=== PATIENT | male | born 1930 | race Caucasian/White ===

== ENCOUNTER 2018-03-12 07:15 | Inpatient (IN) ==
--- NOTE | 2018-03-12 08:27 | ED ---
HPI General Chief complaint: Back Pain/Injury Stated complaint: legs & back pain Time Seen by Provider: 03/12/18 07:35 Source: patient and family Mode of arrival: ambulatory Limitations: no limitations History of Present Illness HPI narrative: 87-year-old male with a 3-day history of back pain. Patient describes pain as a "muscle spasm", cramping and shooting from his left hip down to his toes. Currently rates the pain is 1 out of 10 however when he tries to move it increases to 10 out of 10 pain. Alleviating factors include sitting down and leaning forward. Aggravating factors include Valsalva, sitting straight up, standing up and walking. Denies icing the area. Reports taking a couple ibuprofen with no pain relief. Denies any falls or any new lifestyle or exercise regimen changes in the last couple of weeks. Reports being able to perform 15-minute walking exercises and stretches before this incident. Reports able to urinate and have a bowel movement. Denies headaches , dizziness, visual changes, shortness of breath, dyspnea, chest pain, abdominal pain, leg paralysis, numbness and tingling in the genital area. Onset (ago): day(s) (3) Location: lower extremity (left hip ) Radiation: extremity (left lower extremity ) Severity scale (1-10): 10 Quality: sharp Pain Consistency: intermittent Relieving factors: rest Exacerbating factors: movement Treatments prior to arrival: Reports NSAID Related Data Home Medications Medication Instructions Recorded Confirmed ascorbic acid (vitamin C) [Vitamin 500 mg PO BID 03/12/18 03/12/18 C] enalapril maleate 5 mg PO BID 03/12/18 03/12/18 fenofibrate 160 mg PO DAILY 03/12/18 03/12/18 furosemide 20 mg PO BID 03/12/18 03/12/18 insulin glargine [Lantus Solostar 18 unit SUBCUT DAILY 03/12/18 03/12/18 U-100 Insulin] lovastatin 20 mg PO BID 03/12/18 03/12/18 omeprazole 20 mg PO DAILY 03/12/18 03/12/18 tamsulosin 0.4 mg PO DAILY 03/12/18 03/12/18 Previous Rx's Medication Instructions Recorded hydrocodone-acetaminophen [Judsonia] 1 tab PO Q6H PRN #20 tab 03/12/18 Allergies Allergy/AdvReac Type Severity Reaction Status Date / Time hydrocodone Allergy Intermediate RASH Verified 03/12/18 07:49 quinine Allergy Intermediate RASH Verified 03/12/18 07:49 [facility] Social History Social History Substance History: No History of Abuse Second Hand Smoke Exposure: No Smoking Status: Never smoker How Often Do You Have a Drink Containing Alcohol: Never Recent Travel in [facility] within the Last 8 Weeks: No Recent Out of Country Travel within the Last 8 Weeks: No Immunization History Tetanus Immunization: Unsure Course Initial Documented Vital Signs Temperature 98.8 F 03/12/18 07:26 Pulse Rate 80 03/12/18 07:26 Respiratory Rate 18 03/12/18 07:26 Blood Pressure 148/72 H 03/12/18 07:26 Pulse Oximetry 97 03/12/18 07:26 Last Documented Vital Signs Temperature 97.8 F 03/13/18 10:45 Pulse Rate 73 03/13/18 10:45 Respiratory Rate 19 03/13/18 08:00 Blood Pressure 138/69 03/13/18 10:45 Pulse Oximetry 93 L 03/13/18 10:45 Medical Decision Making MDM Narrative Medical decision making narrative: Patient room in the emergency department, CAT scan does show an acute subacute fracture of L2 with compression and some retropulsion of elements, has chronic retropulsion of L5 which is somewhat worse. T12 has a old compression fracture as well. Patient neurologically intact, no indication for MRI at this time. He is feeling much better after Judsonia 5/325 x 2 pills in the ER, discussed pain management with him, after clearing E force the patient is low risk for Judsonia prescription, I written him 20 tablets in acute pain set exception is warranted given the patient's subacute fractures and the need for pain control at home to assist him with activities of daily living. Shortly after discussion for probable discharge patient's daughter arrived who is his primary caregiver and states that he has been totally dependent on her care recently. She is concerned about his ability to perform ADLs 2/2 pain. She asked that the patient could be placed into admission status for 3 days and then go to a rehabilitation stay do not think is an unreasonable request however at this time the patient meets observation status alone, I discussed the patient with case management, request consultation with Dr. Metz who the patient is known to. Medical Screen Exam Complete: Yes Emergency Medical Condition: Yes Lab Data Result diagrams: 10/22/18 04:34 03/13/18 04:34 Lab Results 03/12/18 03/12/18 03/12/18 Range/Units 13:00 19:28 19:28 WBC 8.9 (4.0-11.0) th/mm3 RBC 3.44 L (4.50-5.90) mil/mm3 Hgb 10.9 L (13.0-17.0) gm/dL Hct 31.4 L (39.0-51.0) % MCV 91.2 (80.0-100.0) fL MCH 31.8 (27.0-34.0) pg MCHC 34.8 (32.0-36.0) % RDW 13.1 (11.6-17.2) % Plt Count 234 (150-450) th/mm3 MPV 8.7 (7.0-11.0) fL Neut % (Auto) 73.2 H (16.0-70.0) % Lymph % (Auto) 13.5 (9.0-44.0) % Sutter % (Auto) 8.5 H (0.0-8.0) % Eos % (Auto) 3.8 (0.0-4.0) % Baso % (Auto) 1.0 (0.0-2.0) % Neut # (Auto) 6.5 (1.8-7.7) th/mm3 Lymph # (Auto) 1.2 (1.0-4.8) th/mm3 Sutter # (Auto) 0.8 (0.0-0.9) th/mm3 Eos # (Auto) 0.3 (0.0-0.4) th/mm3 Baso # (Auto) 0.1 (0.0-0.2) th/mm3 WBC Differential . Differential Comment Auto diff final PT 14.0 H (9.8-11.6) sec INR 1.4 Ratio APTT 25.2 (24.3-30.1) sec Sodium (136-145) meq/L Potassium (3.5-5.1) meq/L Chloride (98-107) meq/L Carbon Dioxide (21.0-32.0) meq/L Anion Gap (5-15) meq/L BUN (7-18) mg/dL Creatinine (0.60-1.30) mg/dL Estimated GFR (>89) mL/min POC Glucose 105 (68-110) mg/dl Random Glucose (74-106) mg/dL Calcium (8.5-10.1) mg/dL Prot Corrected Calcium (8.5-10.1) mg/dL Magnesium (1.5-2.5) mg/dL Total Creatine Kinase (39-308) U/L Total Protein (6.4-8.2) g/dL 03/12/18 03/12/18 03/13/18 Range/Units 19:28 21:14 04:34 WBC 6.5 (4.0-11.0) th/mm3 RBC 3.02 L (4.50-5.90) mil/mm3 Hgb 10.5 L (13.0-17.0) gm/dL Hct 30.0 L (39.0-51.0) % MCV 99.1 D (80.0-100.0) fL MCH 34.8 H (27.0-34.0) pg MCHC 35.1 (32.0-36.0) % RDW 13.4 (11.6-17.2) % Plt Count 218 (150-450) th/mm3 MPV 9.5 (7.0-11.0) fL Neut % (Auto) 70.9 H (16.0-70.0) % Lymph % (Auto) 13.0 (9.0-44.0) % Sutter % (Auto) 9.7 H (0.0-8.0) % Eos % (Auto) 5.4 H (0.0-4.0) % Baso % (Auto) 1.0 (0.0-2.0) % Neut # (Auto) 4.6 (1.8-7.7) th/mm3 Lymph # (Auto) 0.8 L (1.0-4.8) th/mm3 Sutter # (Auto) 0.6 (0.0-0.9) th/mm3 Eos # (Auto) 0.3 (0.0-0.4) th/mm3 Baso # (Auto) 0.1 (0.0-0.2) th/mm3 WBC Differential . Differential Comment Auto diff final PT (9.8-11.6) sec INR Ratio APTT (24.3-30.1) sec Sodium 141 (136-145) meq/L Potassium 2.9 L* (3.5-5.1) meq/L Chloride 104 (98-107) meq/L Carbon Dioxide 27.8 (21.0-32.0) meq/L Anion Gap 9 (5-15) meq/L BUN 28 H (7-18) mg/dL Creatinine 1.35 H (0.60-1.30) mg/dL Estimated GFR 50 L (>89) mL/min POC Glucose 125 H (68-110) mg/dl Random Glucose 101 (74-106) mg/dL Calcium 6.9 L* (8.5-10.1) mg/dL Prot Corrected Calcium 7.3 L* (8.5-10.1) mg/dL Magnesium 0.7 L (1.5-2.5) mg/dL Total Creatine Kinase (39-308) U/L Total Protein 6.4 (6.4-8.2) g/dL 03/13/18 03/13/18 03/13/18 Range/Units 04:34 07:29 10:47 WBC (4.0-11.0) th/mm3 RBC (4.50-5.90) mil/mm3 Hgb (13.0-17.0) gm/dL Hct (39.0-51.0) % MCV (80.0-100.0) fL MCH (27.0-34.0) pg MCHC (32.0-36.0) % RDW (11.6-17.2) % Plt Count (150-450) th/mm3 MPV (7.0-11.0) fL Neut % (Auto) (16.0-70.0) % Lymph % (Auto) (9.0-44.0) % Sutter % (Auto) (0.0-8.0) % Eos % (Auto) (0.0-4.0) % Baso % (Auto) (0.0-2.0) % Neut # (Auto) (1.8-7.7) th/mm3 Lymph # (Auto) (1.0-4.8) th/mm3 Sutter # (Auto) (0.0-0.9) th/mm3 Eos # (Auto) (0.0-0.4) th/mm3 Baso # (Auto) (0.0-0.2) th/mm3 WBC Differential Differential Comment PT (9.8-11.6) sec INR Ratio APTT (24.3-30.1) sec Sodium 142 (136-145) meq/L Potassium 4.3 D (3.5-5.1) meq/L Chloride 109 H (98-107) meq/L Carbon Dioxide 25.9 (21.0-32.0) meq/L Anion Gap 7 (5-15) meq/L BUN 27 H (7-18) mg/dL Creatinine 1.09 (0.60-1.30) mg/dL Estimated GFR 64 L (>89) mL/min POC Glucose 94 71 (68-110) mg/dl Random Glucose 86 (74-106) mg/dL Calcium 8.8 D (8.5-10.1) mg/dL Prot Corrected Calcium (8.5-10.1) mg/dL Magnesium 1.4 L D (1.5-2.5) mg/dL Total Creatine Kinase 227 (39-308) U/L Total Protein (6.4-8.2) g/dL Imaging Data Radiologist's impression: Lumbar Spine CT 03/12/18 08:14 CONCLUSION: 1. Moderate compression fracture deformity of the L2 vertebral body with invagination of the superior endplate. This appears acute to subacute with mild retropulsion of the posterior superior aspect measuring up to 3 mm with mass effect on the anterior thecal sac. 2. Chronic appearing compression fracture deformity of the L5 vertebral body with retropulsion which is new from the 2015 exam. 3. Stable compression fracture deformity of the T12 vertebral body. 4. Degenerative disc changes with annular disc bulges. There is mild to moderate central canal stenosis at L2-3. 5. Remote postsurgical changes status post left laminectomy at the L3-4 and L4- 5 levels. Pelvis X-Ray 03/12/18 08:14 CONCLUSION: No acute fracture or malalignment. Lumbar Spine MRI 03/13/18 00:00 CONCLUSION: 1. There is bone marrow edema consistent with an acute to subacute compression fracture injury involving L2 and L3. There is a moderate compression fracture of L2. There is a mild compression fracture injury along the superior endplate of L3. 2. Old wedge compression injuries at T12 and L5 without bone marrow edema. 3. Primary degenerative changes with disc degeneration and disc space narrowing at multiple levels. 4. 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 5. Disc bulging at multiple levels as described above. 6. Bilateral facet arthritis at multiple levels. Discharge Plan Discharge Disposition Patient Disposition: 30 Still Patient Discharge Condition Condition: Stable Discharge Details Diagnosis: Closed L2 vertebral fracture Physicians Team ED Provider: Santiago Kinsey Primary Care Provider: Ilda Delgado Attending Provider: Junior Kwon Other Providers: Omkar Washington Status ED Status: Left Department Discharge Information Discharge Date/Time: 03/12/18 15:55
--- NOTE | 2018-03-12 08:57 | XR ---
EXAM DATE: 03/12/2018 8:14 AM EDT AGE/SEX: 87 years / Male INDICATIONS: Left sided Pelvic pain CLINICAL DATA: This is the patient's initial encounter. Patient reports that signs and symptoms have been present for 1 day and indicates a pain score of 8/10. MEDICAL/SURGICAL HISTORY: . Hypertension. Diabetes . Cholecystectomy. TURP COMPARISON: [facility], XR PELVIS AP, 12/19/2014. . FINDINGS: A single AP view of the pelvis was obtained and again demonstrates diffuse osteopenia. There is no ac nidia fracture or malalignment. The hips are symmetric and intact with minimal degenerative change. The pubic rami and sacrum are unremarkable. Degenerative disc change and scoliosis are again noted in th e lower lumbar spine. There are vascular calcifications. CONCLUSION: No acute fracture or malalignment. Electronically signed by: Eduardo Duggan MD 03/12/2018 8:56 AM EDT
--- NOTE | 2018-03-12 10:24 | CT ---
EXAM DATE: 03/12/2018 8:36 AM EDT AGE/SEX: 87 years / Male INDICATIONS: Pain across low back per patient CLINICAL DATA: This is the patient's initial encounter. Patient reports that signs and symptoms have been present for 3 days and indicates a pain score of 10/10. MEDICAL/SURGICAL HISTORY: Diabetes. Hypertension. . TURP RADIATION DOSE: 35.86 CTDI (mGy) COMPARISON: [facility], XR SPINE LUMBAR (MIN 4 VIEWS), 12/19/2014. . TECHNIQUE: Contiguous axial images were acquired with a multirow detector CT scanner without contras t. Multiplanar reconstructions in the sagittal and coronal plane were also performed. Using automate d exposure control and adjustment of the mA and/or kV according to patient size, radiation dose was k ept as low as reasonably achievable to obtain optimal diagnostic quality images. DICOM format image data is available electronically for review and comparison. FINDINGS: Vertebrae: There is diffuse osteopenia. There is a stable mild compression fracture deformity T12 ve rtebral body again noted with anterior wedging. There is an interval moderate chronic appearing compr ession fracture deformity involving the L5 vertebral body with invagination of the superior endplate and mild retropulsion of the posterior superior aspect of the vertebral body. There is a moderate com pression fracture deformity of the L2 vertebral body with invagination of the superior endplate with patchy sclerosis. This appears acute. Discs: Degenerative disc changes are noted with mild disc space narrowing and hypertrophic changes. Alignment: Normal. No subluxation. T12-L1: There is a mild disc bulge with minimal flattening of the anterior thecal sac and no focal p rotrusion. There are mild degenerative change involving the facet joints. L1-L2: There is an annular disc bulge with mild flattening of the anterior thecal sac and no focal p rotrusion. There is mild narrowing of the neural foramina. The moderate compression fracture deformit y of the L2 vertebral body is again noted with fracture lines. There is mild retropulsion of the post erior superior aspect of the vertebral body measuring up to approximately 3 mm with mild mass effect on the anterior thecal sac. L2-L3: Mild annular disc bulge with flattening of the anterior thecal sac and narrowing of the neura l foramina. There are degenerative changes involving the facet joints with hypertrophy of ligamentum flavum and mild to moderate central canal stenosis. L3-L4: Mild annular disc bulge with flattening of the anterior thecal sac and narrowing of the neura l foramina. The patient is status post left laminectomy. The thecal sac is patent. L4-L5: Annular disc bulge with mild flattening of anterior thecal sac and no visualized protrusion. The compression fracture deformity of the L5 vertebral body is again noted with retropulsion of the p osterior superior aspect of the vertebral body and mass effect on the anterior thecal sac. There is l ateral recess stenosis. The patient is status post left laminectomy. L5-S1: Mild disc bulge with no mass effect on the thecal sac. There is mild narrowing of the neural foramina. There are degenerative changes involving the facet joints. CONCLUSION: 1. Moderate compression fracture deformity of the L2 vertebral body with invagination of the superio r endplate. This appears acute to subacute with mild retropulsion of the posterior superior aspect me asuring up to 3 mm with mass effect on the anterior thecal sac. 2. Chronic appearing compression fracture deformity of the L5 vertebral body with retropulsion which is new from the 2015 exam. 3. Stable compression fracture deformity of the T12 vertebral body. 4. Degenerative disc changes with annular disc bulges. There is mild to moderate central canal steno sis at L2-3. 5. Remote postsurgical changes status post left laminectomy at the L3-4 and L4-5 levels. Electronically signed by: Eduardo Duggan MD 03/12/2018 10:22 AM EDT
[2018-03-12] MEDS ORDERED: Dextrose 50% in Water 50 ML Vial IV.PUSH PRN (11:33)
[2018-03-12] MEDS ORDERED: Acetaminophen 325 MG Tablet PO PRN ×2 (11:34→12:39)
[2018-03-12] MEDS ORDERED: Bisacodyl 10 MG Supp RECTAL PRN (11:34)
[2018-03-12] MEDS ORDERED: Naloxone Inj 0.4 MG/ML Vial IV.PUSH PRN (12:39)
[2018-03-12] MEDS ORDERED: Morphine Inj 4 MG/ML Vial IV.PUSH PRN (12:39)
[2018-03-12] MEDS: Insulin NovoLOG Aspart Correctional Sugar Inj SQ SCH ×3 (12:46→21:15)
--- NOTE | 2018-03-12 12:48 | P.HP ---
History of Present Illness Primary Care Physician: Ilda Delgado MD Chief Complaint: Back pain History of Present Illness: This is a 87-year-old male with a history of hypertension, hyperlipidemia, diabetes mellitus, bilateral lower extremity edema and BPH. He presents to the emergency department complaining of back pain for the past 4-5 days. He describes a muscle spasm affecting his left lower back that shoots down to the left lateral thigh up to the knee. It is a mild constant pain scale of 1 out of 10 but when he tries to move increases to 10 out of 10. His activity has significantly been curtailed because of pain. He has not been ambulatory. At baseline, he regularly exercises with 15-minute walking but has not done it for the past several days. Denies incontinence, numbness and recent trauma. Lumbar CT shows moderate compression fracture deformity of the L2 vertebral body with invagination of the superior endplate. Patient lives with his daughter and son-in-law and has been totally dependent on his needs since he developed back pain. His family is concerned about his safety when he is alone. He is requesting to be evaluated by Dr. Metz who operated on his lumbar spine years ago. All other systems reviewed negative ITS Impressions Lumbar Spine CT 03/12/18 08:14 CONCLUSION: 1. Moderate compression fracture deformity of the L2 vertebral body with invagination of the superior endplate. This appears acute to subacute with mild retropulsion of the posterior superior aspect measuring up to 3 mm with mass effect on the anterior thecal sac. 2. Chronic appearing compression fracture deformity of the L5 vertebral body with retropulsion which is new from the 2015 exam. 3. Stable compression fracture deformity of the T12 vertebral body. 4. Degenerative disc changes with annular disc bulges. There is mild to moderate central canal stenosis at L2-3. 5. Remote postsurgical changes status post left laminectomy at the L3-4 and L4- 5 levels. Pelvis X-Ray 03/12/18 08:14 CONCLUSION: No acute fracture or malalignment. Review of Systems All other systems reviewed negative except as stated in HPI PMFSH - History History Provided By: Patient - Medical History Medical History: Medical History (Last Reviewed 03/12/18 @ 12:49 by Junior Kwon MD) Diabetes HTN (hypertension) High cholesterol Urinary retention - Surgical History Surgical History: Surgical History (Last Reviewed 03/12/18 @ 12:49 by Junior Kwon MD) S/P TURP - Family History Family History: Family History (Last Updated 03/12/18 @ 12:49 by Junior Kwon MD) Other Family history of diabetes mellitus - Social History I have reviewed the patient's Social History: Yes - Tobacco History Smoking Status: Never smoker - Alcohol History How Often Do You Have a Drink Containing Alcohol: Never - Substance Use History Substance History: No History of Abuse - Travel History Recent Travel in the [place] Within the Last 8 Weeks: No Recent Travel Out of the Country Within the Last 8 Weeks: No - Immunization History Tetanus Immunization: Unsure Medications and Allergies Active Medications: Active Medications Acetaminophen (Tylenol) 650 mg PO Q4H PRN PRN Reason: Temp > 100.4 Acetaminophen (Tylenol) 650 mg PO Q6HR PRN PRN Reason: PAIN SCALE 1 TO 2 Bisacodyl (Dulcolax Supp) 10 mg RECTAL DAILY PRN PRN Reason: SEVERE CONSITIPATION Dextrose (D50w Vial) 50 ml IV.PUSH UNSCH PRN PRN Reason: PER HYPOGLYCEMIA PROTOCOL Enalapril Maleate (Vasotec) 5 mg PO BID VANESSA Furosemide (Lasix) 20 mg PO BID VANESSA Glucagon (Glucagon Inj) 1 mg OTHER PRN PRN PRN Reason: for Hypoglycemia Protocol Insulin Aspart (Novolog Insulin Correctional Sugar Inj) 0 unit SQ ACHS VANESSA; Protocol Lactulose (Lactulose Liq) 30 ml PO DAILY PRN PRN Reason: SEVERE CONSITIPATION Methocarbamol (Robaxin) 750 mg PO Q8HR VANESSA Morphine Sulfate (Morphine Inj) 1 mg IV.PUSH Q3H PRN PRN Reason: BREAKTHROUGH PAIN Naloxone HCl (Narcan Inj) 0.4 mg IV.PUSH UNSCH PRN PRN Reason: SEE LABEL COMMENTS Non-Formulary Medication (Ascorbic Acid (Vitamin C) [Vitamin C]) 500 mg PO BID VANESSA Non-Formulary Medication (Fenofibrate [Fenofibrate]) 160 mg PO HS VANESSA Non-Formulary Medication (Lovastatin [Lovastatin]) 40 mg PO HS VANESSA Non-Formulary Medication (Omeprazole [Omeprazole]) 20 mg PO DAILY VANESSA Non-Formulary Medication (Insulin Glargine [Lantus Solostar U-100 Insulin]) 14 unit SQ DAILY VANESSA Ondansetron HCl (Zofran Inj) 4 mg IV.PUSH Q6H PRN PRN Reason: NAUSEA OR VOMITING Senna/Docusate Sodium (Haydee-Colace) 1 tab PO BID VANESSA Sennosides (Senokot) 17.2 mg PO Q12H PRN PRN Reason: Moderate Constipation Sodium Chloride (Ns Flush) 2 ml IV.FLUSH PRN PRN PRN Reason: FLUSH AFTER USING IV ACCESS Tamsulosin HCl (Flomax) 0.4 mg PO HS VANESSA Tramadol HCl (Ultram) 50 mg PO Q4H PRN PRN Reason: PAIN SCALE 3 TO 5 Tramadol HCl (Ultram) 100 mg PO Q4H PRN PRN Reason: PAIN SCALE 6 TO 10 Allergies Allergy/AdvReac Type Severity Reaction Status Date / Time hydrocodone Allergy Intermediate RASH Verified 03/12/18 07:49 quinine Allergy Intermediate RASH Verified 03/12/18 07:49 Home Medications Medication Instructions Recorded Confirmed Type ascorbic acid (vitamin C) [Vitamin 500 mg PO BID 03/12/18 03/12/18 History C] enalapril maleate 5 mg PO BID 03/12/18 03/12/18 History fenofibrate 160 mg PO DAILY 03/12/18 03/12/18 History furosemide 20 mg PO BID 03/12/18 03/12/18 History insulin glargine [Lantus Solostar 18 unit SUBCUT DAILY 03/12/18 03/12/18 History U-100 Insulin] lovastatin 20 mg PO BID 03/12/18 03/12/18 History omeprazole 20 mg PO DAILY 03/12/18 03/12/18 History tamsulosin 0.4 mg PO DAILY 03/12/18 03/12/18 History Exam Vital signs: Vital Signs 03/12/18 07:26 03/12/18 09:39 Temperature 98.8 F Pulse Rate 80 Respiratory Rate 18 19 Blood Pressure 148/72 H Pulse Oximetry 97 Intake & Output 03/11/18 03/12/18 03/12/18 18:59 06:59 18:59 Weight 73.936 kg Narrative: GENERAL: WD WN SKIN: Warm and dry. HEAD: Atraumatic. Normocephalic. EYES: Pupils equal and round. No scleral icterus. No injection or drainage. ENT: No nasal bleeding or discharge. Mucous membranes pink and moist. NECK: Trachea midline. No JVD. CARDIOVASCULAR: Regular rate and rhythm. RESPIRATORY: No accessory muscle use. Clear to auscultation. Breath sounds equal bilaterally. GASTROINTESTINAL: Abdomen soft, non-tender, nondistended. MUSCULOSKELETAL: Extremities without clubbing, cyanosis, or edema. No obvious deformities. TLSO brace in place NEUROLOGICAL: Awake and alert. No obvious cranial nerve deficits. Motor grossly within normal limits. Five out of 5 muscle strength in the arms and legs. Normal speech. Gait not tested PSYCHIATRIC: Appropriate mood and affect; insight and judgment normal. Results - Imaging Impressions Lumbar Spine CT 03/12/18 08:14 CONCLUSION: 1. Moderate compression fracture deformity of the L2 vertebral body with invagination of the superior endplate. This appears acute to subacute with mild retropulsion of the posterior superior aspect measuring up to 3 mm with mass effect on the anterior thecal sac. 2. Chronic appearing compression fracture deformity of the L5 vertebral body with retropulsion which is new from the 2015 exam. 3. Stable compression fracture deformity of the T12 vertebral body. 4. Degenerative disc changes with annular disc bulges. There is mild to moderate central canal stenosis at L2-3. 5. Remote postsurgical changes status post left laminectomy at the L3-4 and L4- 5 levels. Pelvis X-Ray 03/12/18 08:14 CONCLUSION: No acute fracture or malalignment. Caprini VTE Risk Assessment Caprini VTE Risk Assessment: Moderate/High Risk (score >= 2) Caprini Risk Assessment Model: Point Value = 1 Point Value = 2 Point Value = 3 Point Value = 5 Age 41-60 Minor surgery BMI > 25 kg/m2 Swollen legs Varicose veins or History of unexplained or recurrent spontaneous Oral contraceptives or hormone replacement Sepsis (< 1 month) Serious lung disease, including pneumonia (< 1 month) Abnormal pulmonary function Acute myocardial infarction Congestive heart failure (< 1 month) History of inflammatory bowel disease Medical patient at bed rest Age 61-74 Arthroscopic surgery Major open surgery (> 45 min) Laparoscopic surgery (> 45 min) Malignancy Confined to bed (> 72 hours) Immobilizing plaster cast Central venous access Age >= 75 History of VTE Family history of VTE Factor V Leiden Prothrombin [id number] Lupus anticoagulant Anticardiolipin antibodies Elevated serum homocysteine Heparin-induced thrombocytopenia Other congenital or acquired thrombophilia Stroke (< 1 month) Elective arthroplasty Hip, pelvis, or leg fracture Acute spinal cord injury (< 1 month) Prophylaxis Regimen: Total Risk Factor Score Risk Level Prophylaxis Regimen 0-1 Low Early ambulation 2 Moderate Order ONE of the following: *Sequential Compression Device (SCD) *Heparin 5000 units SQ BID 3-4 Higher Order ONE of the following medications: *Heparin 5000 units SQ TID *Enoxaparin/Lovenox 40 mg SQ daily (WT < 150 kg, CrCl > 30 mL/min) *Enoxaparin/Lovenox 30 mg SQ daily (WT < 150 kg, CrCl > 10-29 mL/min) *Enoxaparin/Lovenox 30 mg SQ BID (WT < 150 kg, CrCl > 30 mL/min) AND/OR *Sequential Compression Device (SCD) 5 or more Highest Order ONE of the following medications: *Heparin 5000 units SQ TID (Preferred with Epidurals) *Enoxaparin/Lovenox 40 mg SQ daily (WT < 150 kg, CrCl > 30 mL/min) *Enoxaparin/Lovenox 30 mg SQ daily (WT < 150 kg, CrCl > 10-29 mL/min) *Enoxaparin/Lovenox 30 mg SQ BID (WT < 150 kg, CrCl > 30 mL/min) AND *Sequential Compression Device (SCD) Assessment and Plan - Plan This is a 87-year-old male with a history of hypertension, hyperlipidemia, diabetes mellitus, bilateral lower extremity edema and BPH. He presents to the emergency department complaining of acute back pain for the past 4-5 days. He has not been ambulatory. Lumbar CT shows moderate compression fracture deformity of the L2 vertebral body with invagination of the superior endplate. Moderate compression fracture deformity of the L2 vertebral body with invagination of the superior endplate, acute to subacute with mild retropulsion of the posterior superior aspect measuring up to 3 mm with mass effect on the anterior thecal sac. Patient will be hospitalized for further evaluation and treatment. He will be started on pain management with tramadol and IV morphine counseled regarding narcotics. He will also be on muscle relaxer methocarbamol. Physical therapy evaluation. Continue back brace. We will consult Dr. Metz for possible surgical intervention. Labs ordered-CBC, BMP , PT and PTT DVT prophylaxis with SCD. Pharmacological prophylaxis per neurosurgery Discharge Planning: HHC vs rehab
[2018-03-12] MEDS: Methocarbamol 500 MG Tablet PO SCH ×2 (14:29→21:07)
[2018-03-12 19:36] LABS: Baso # (Auto) 0.1 th/mm3 (0.0-0.2); Eos # (Auto) 0.3 th/mm3 (0.0-0.4); Eos % (Auto) 3.8 % (0.0-4.0); Hematocrit 31.4 % (39.0-51.0); Hemoglobin 10.9 gm/dL (13.0-17.0); Lymph # (Auto) 1.2 th/mm3 (1.0-4.8); Lymph % (Auto) 13.5 % (9.0-44.0); Mean Corpuscular HGB Conc 34.8 % (32.0-36.0); Mean Corpuscular Hemoglobin 31.8 pg (27.0-34.0); Mean Corpuscular Volume 91.2 fL (80.0-100.0); Mean Platelet Volume 8.7 fL (7.0-11.0); Mono # (Auto) 0.8 th/mm3 (0.0-0.9); Mono % (Auto) 8.5 % (0.0-8.0); Neut # (Auto) 6.5 th/mm3 (1.8-7.7); Neut % (Auto) 73.2 % (16.0-70.0); Platelet Count 234 th/mm3 (150-450); Red Blood Count 3.44 mil/mm3 (4.50-5.90); Red Cell Distribution Width 13.1 % (11.6-17.2); White Blood Count 8.9 th/mm3 (4.0-11.0)
[2018-03-12 19:54] LABS: Calcium 6.9 mg/dL (8.5-10.1); Carbon Dioxide 27.8 meq/L (21.0-32.0); Magnesium 0.7 mg/dL (1.5-2.5)
[2018-03-12 19:59] LABS: Activated Partial Thrombo Time 25.2 sec (24.3-30.1); INR 1.4 Ratio
[2018-03-12 20:17] LABS: Total Protein 6.4 g/dL (6.4-8.2)
[2018-03-12 20:24] LABS: Potassium 2.9 meq/L (3.5-5.1)
[2018-03-12] MEDS ORDERED: Magnesium Sulfate Inj 2 GM in Sodium Chlor 0.9% Inj 96 ML IV.SIG ONE (20:43)
[2018-03-12] MEDS ORDERED: Calcium Chloride Inj 2 GM in Dextrose 5% in Water Inj 100 ML IV.SIG ONE ×2 (20:43)
[2018-03-12] MEDS ORDERED: Potassium Chloride 25 MEQ Effervescent Tablet PO ONE (20:43)
[2018-03-12] MEDS ORDERED: Potassium Chlor 20 mEq Premix 20 MEQ/100 ML PIGGYBACK IV.SIG ONE (20:44)
[2018-03-12] MEDS ORDERED: Furosemide 20 MG Tablet PO SCH (21:00)
[2018-03-12] MEDS: Ascorbic Acid 500 MG Tablet PO SCH (21:05)
[2018-03-12] MEDS: Senna/Docusate Sodium 8.6/50 MG Tablet PO SCH (21:06)
[2018-03-12] MEDS: Fenofibrate 145 MG Tablet PO SCH (21:06)
[2018-03-12] MEDS ORDERED: KCL 20 mEq/NACL 0.45% Inj 1,000 ML IV.CONT SCH (21:45)
[2018-03-13] MEDS: Methocarbamol 500 MG Tablet PO SCH ×3 (05:36→22:50)
[2018-03-13 06:32] LABS: Baso # (Auto) 0.1 th/mm3 (0.0-0.2); Eos # (Auto) 0.3 th/mm3 (0.0-0.4); Eos % (Auto) 5.4 % (0.0-4.0); Hemoglobin 10.5 gm/dL (13.0-17.0); Lymph # (Auto) 0.8 th/mm3 (1.0-4.8); Mean Corpuscular HGB Conc 35.1 % (32.0-36.0); Mean Corpuscular Hemoglobin 34.8 pg (27.0-34.0); Mean Corpuscular Volume 99.1 fL (80.0-100.0); Mean Platelet Volume 9.5 fL (7.0-11.0); Mono # (Auto) 0.6 th/mm3 (0.0-0.9); Mono % (Auto) 9.7 % (0.0-8.0); Neut # (Auto) 4.6 th/mm3 (1.8-7.7); Neut % (Auto) 70.9 % (16.0-70.0); Platelet Count 218 th/mm3 (150-450); Red Blood Count 3.02 mil/mm3 (4.50-5.90); Red Cell Distribution Width 13.4 % (11.6-17.2); White Blood Count 6.5 th/mm3 (4.0-11.0)
[2018-03-13 07:28] LABS: Calcium 8.8 mg/dL (8.5-10.1); Carbon Dioxide 25.9 meq/L (21.0-32.0); Magnesium 1.4 mg/dL (1.5-2.5); Potassium 4.3 meq/L (3.5-5.1)
[2018-03-13] MEDS: Insulin NovoLOG Aspart Correctional Sugar Inj SQ SCH ×3 (07:30→17:32)
[2018-03-13] MEDS: Ascorbic Acid 500 MG Tablet PO SCH ×3 (07:31→22:49)
[2018-03-13] MEDS: Senna/Docusate Sodium 8.6/50 MG Tablet PO SCH ×3 (07:31→22:49)
[2018-03-13] MEDS: Pantoprazole Sodium 20 MG DR Tablet PO SCH ×2 (07:31→10:09)
[2018-03-13] MEDS: Insulin Detemir Inj 1,000 UNIT/10 ML Vial SQ SCH ×2 (07:33→10:09)
--- NOTE | 2018-03-13 10:23 | P.CONNS ---
History of Present Illness Service: neurosurgery Consult date: 03/13/18 Requesting Physician: Junior Kwon Reason for Consult: L2 fracture Primary Care Provider: Ilda Delgado MD Chief Complaint: Back pain History of Present Illness: This is a 87-year-old male with a history of arterial hypertension, hyperlipidemia, diabetes mellitus, bilateral lower extremity edema and BPH. He was brought to the emergency department complaining of back pain for the past 4- 5 days. He describes a muscle spasm affecting his left lower back that shoots down to the left lateral thigh up to the knee. It is a mild constant pain scale of 1 out of 10 but when he tries to move increases to 10 out of 10. His daily activity has significantly been limited because of pain. He has not been ambulatory. At baseline, he regularly exercises with 15-minute walking but has not done it for the past several days. He denies incontinence, numbness and recent trauma. CT of lumbar spine shows moderate compression fracture deformity of the L2 vertebral body with invagination of the superior endplate. I did his by Dr. Metz lumbar spine surgery years ago. Neurosurgery consultation was requested Review of Systems Constitutional: Denies anorexia, Denies body ache(s), Denies chills, Denies daytime sleepiness, Denies excessive sweating, Denies fatigue, Denies fever(s), Denies headache(s), Denies increased appetite, Denies lack of energy, Denies malaise, Denies night sweats, Denies weakness, Denies weight gain, Denies weight loss, Denies other Eyes: Denies blind spots, Denies blurry vision, Denies bulging eyes, Denies change in vision, Denies double vision, Denies discharge, Denies dry eyes, Denies floaters, Denies irritation, Denies itchy eyes, Denies loss of vision, Denies pain, Denies requires corrective lenses, Denies sensitivity to light, Denies other Ears, Nose, Mouth, and Throat: Denies abnormal hearing, Denies bleeding gums, Denies bad breath, Denies change in voice, Denies dental pain, Denies difficulty swallowing, Denies dizziness, Denies dry mouth, Denies ear discharge , Denies ear pain, Denies facial pain, Denies headache(s), Denies hearing loss, Denies hoarseness, Denies lip swelling, Denies nosebleed, Denies mouth lesions, Denies mouth pain, Denies nasal congestion, Denies nasal discharge, Denies nasal obstruction, Denies nasal trauma, Denies neck lump, Denies neck pain, Denies nose pain, Denies pain with swallowing, Denies poor balance, Denies post nasal drip, Denies ringing in the ears, Denies sinus pain, Denies sinus pressure , Denies sore throat, Denies throat swelling, Denies tongue swelling, Denies other Cardiovascular: Denies chest pain, Denies chest pain at rest, Denies chest pain with activity, Denies excessive sweating, Denies fainting, Denies fast heart rate, Denies foot swelling, Denies generalized swelling, Denies irregular heart rhythm, Denies leg pain with activity, Denies leg sores, Denies leg swelling, Denies lightheadedness, Denies radiating jaw, neck or arm pain, Denies rapid, pounding, or irregular heartbeat, Denies shortness of breath, Denies shortness of breath with activity, Denies shortness of breath when lying down, Denies shortness of breath causing sudden awakening, Denies slow heart rate, Denies other Respiratory: Denies change in phlegm color, Denies chest congestion, Denies cough, Denies coughing up blood, Denies excessive phlegm production, Denies pain on inspiration, Denies pain with cough, Denies shortness of breath, Denies shortness of breath with activity, Denies snoring, Denies stridor, Denies wheezing, Denies other Gastrointestinal: Denies abdominal pain, Denies belching, Denies black, tarry stools, Denies bloating, Denies bright, red blood in stools, Denies change in bowel habits, Denies constant urge to pass stool, Denies change in stools, Denies coffee ground vomit, Denies constipation, Denies cramping, Denies difficulty swallowing, Denies excessive passing of gas, Denies feeling full early, Denies heartburn, Denies incontinent of stools, Denies loose stools, Denies nausea, Denies pain with swallowing, Denies vomiting, Denies vomiting blood, Denies other Genitourinary: Reports frequent nighttime urination, Reports urinary frequency, Reports urinary hesitancy, Reports urinary urgency, Denies blood in semen, Denies blood in urine, Denies decreased urination, Denies difficulty urinating, Denies difficulty with ejaculations, Denies erectile dysfunction, Denies genital lesions, Denies genital pain, Denies painful urination, Denies side pain , Denies painful ejaculations, Denies penile discharge, Denies scrotal swelling , Denies testicle lump, Denies testicle pain, Denies urinary incontinence, Denies other Musculoskeletal: Reports back pain, Denies abnormal walking, Denies body aches, Denies decreased muscle mass, Denies deformity, Denies joint pain, Denies joint swelling, Denies limited joint movement, Denies loss of height, Denies muscle cramps, Denies muscle weakness, Denies neck pain, Denies numbness, Denies radiating pain into limb, Denies stiffness, Denies tingling, Denies other Skin/Breast: Denies acne, Denies bleeding lesions, Denies boil, Denies breast swelling, Denies breast skin changes, Denies breast pain, Denies breast lump, Denies change in breast shape, Denies change in hair, Denies change in skin color, Denies changing lesions, Denies dry skin, Denies excessive hair growth, Denies hair loss, Denies itching, Denies lesions, Denies nail changes, Denies new lesions, Denies nipple discharge, Denies non-healing lesions, Denies redness , Denies sensitivity to light, Denies rash, Denies skin pain, Denies skin ulcer , Denies sores, Denies stretch cruz, Denies unusual bruising, Denies wounds, Denies yellowing of the skin, Denies other Neurologic: Denies abnormal hearing, Denies abnormal movements, Denies abnormal speech, Denies abnormal walking, Denies behavioral changes, Denies burning sensations, Denies confusion, Denies dizziness, Denies fainting, Denies frequent falls, Denies headache(s), Denies lack of coordination, Denies localized weakness, Denies loss of vision, Denies memory loss, Denies numbness, Denies other visual disturbances, Denies radiating pain, Denies restless legs, Denies convulsions, Denies seizure-like activity, Denies sensory deficit, Denies tingling, Denies tingling/numbness/burning sensations, Denies tremor(s), Denies unsteadiness, Denies weakness, Denies other Psychiatric: Denies abnormal sleep pattern, Denies anxiety, Denies behavioral changes, Denies change in appetite, Denies change in sex drive, Denies confusion , Denies depression, Denies difficulty concentrating, Denies hearing things others do not hear, Denies hopelessness, Denies irritability, Denies lack of enjoyment, Denies memory loss, Denies mood swings, Denies panic attacks, Denies paranoia, Denies seeing things others do not see, Denies sensing things others do not sense, Denies tactile hallucinations, Denies thoughts of hurting/killing others, Denies thoughts of hurting/killing yourself, Denies other Endocrine: Denies cold intolerance, Denies excessive sweating, Denies flushing, Denies heat intolerance, Denies increased hunger, Denies increased thirst, Denies increased urination, Denies rapid, pounding, or irregular heartbeat, Denies other Hematologic/Lymphatic: Denies easy bleeding, Denies easy bruising, Denies enlarged lymph nodes, Denies other Allergic/Immunologic: Denies GI upset with certain foods, Denies hives, Denies itchy eyes, Denies lip swelling, Denies seasonal runny nose, Denies throat swelling, Denies tongue swelling, Denies wheezing, Denies other PMFSH - History History Provided By: Patient - Medical History Medical History: Medical History (Last Reviewed 03/13/18 @ 10:20 by Rodríguez Metz MD) Diabetes HTN (hypertension) High cholesterol Urinary retention - Surgical History Surgical History: Surgical History (Last Reviewed 03/13/18 @ 10:20 by Rodríguez Metz MD) S/P TURP - Family History Family History: Family History (Last Reviewed 03/13/18 @ 10:20 by Rodríguez Metz MD) Other Family history of diabetes mellitus - Tobacco History Second Hand Smoke Exposure: No Smoking Status: Never smoker - Alcohol History How Often Do You Have a Drink Containing Alcohol: Never - Substance Use History Substance History: No History of Abuse - Travel History Recent Travel in the [facility] Within the Last 8 Weeks: No Recent Travel Out of the Country Within the Last 8 Weeks: No - Immunization History Tetanus Immunization: <5 Years Medications and Allergies Active Medications: Active Medications Acetaminophen (Tylenol) 650 mg PO Q4H PRN PRN Reason: Temp > 100.4 Acetaminophen (Tylenol) 650 mg PO Q6HR PRN PRN Reason: PAIN SCALE 1 TO 2 Ascorbic Acid (Vitamin C) 500 mg PO BID [facility] Last Admin: 03/13/18 10:09 Dose: Not Given Bisacodyl (Dulcolax Supp) 10 mg RECTAL DAILY PRN PRN Reason: SEVERE CONSITIPATION Clonidine HCl (Catapres) 0.1 mg PO Q6H PRN PRN Reason: SEE LABEL COMMENTS Dextrose (D50w Vial) 50 ml IV.PUSH UNSCH PRN PRN Reason: PER HYPOGLYCEMIA PROTOCOL Enalapril Maleate (Vasotec) 5 mg PO BID [facility] Last Admin: 03/12/18 21:06 Dose: 5 mg Enalaprilat (Vasotec Inj) 1.25 mg IV.PUSH Q6H PRN PRN Reason: SEE LABEL COMMENTS Fenofibrate (Tricor) 145 mg PO HS [facility] Last Admin: 03/12/18 21:06 Dose: 145 mg Furosemide (Lasix) 20 mg PO BID [facility] Last Admin: 03/12/18 21:06 Dose: Not Given Glucagon (Glucagon Inj) 1 mg OTHER PRN PRN PRN Reason: for Hypoglycemia Protocol Potassium Chloride/Sodium Chloride (Potassium Chlor 20 Meq/Nacl 0.45% Inj) 1, 000 mls @ 70 mls/hr IV.CONT .[id number] [facility] Stop: 03/13/18 12:02 Last Admin: 03/13/18 00:38 Dose: 70 mls/hr Insulin Aspart (Novolog Insulin Correctional Sugar Inj) 0 unit SQ ACHS [facility]; Protocol Last Admin: 03/13/18 07:30 Dose: Not Given Insulin Detemir (Levemir Inj) 14 unit SQ DAILY [facility] Last Admin: 03/13/18 10:09 Dose: Not Given Lactulose (Lactulose Liq) 30 ml PO DAILY PRN PRN Reason: SEVERE CONSITIPATION Methocarbamol (Robaxin) 750 mg PO Q8HR [facility] Last Admin: 03/13/18 05:36 Dose: 750 mg Morphine Sulfate (Morphine Inj) 1 mg IV.PUSH Q3H PRN PRN Reason: BREAKTHROUGH PAIN Naloxone HCl (Narcan Inj) 0.4 mg IV.PUSH UNSCH PRN PRN Reason: SEE LABEL COMMENTS Ondansetron HCl (Zofran Inj) 4 mg IV.PUSH Q6H PRN PRN Reason: NAUSEA OR VOMITING Pantoprazole Sodium (Protonix) 20 mg PO DAILY [facility] Last Admin: 03/13/18 10:09 Dose: Not Given Pravastatin Sodium (Pravachol) 40 mg PO HS [facility] Last Admin: 03/12/18 21:05 Dose: 40 mg Senna/Docusate Sodium (Haydee-Colace) 1 tab PO BID [facility] Last Admin: 03/13/18 10:09 Dose: Not Given Sennosides (Senokot) 17.2 mg PO Q12H PRN PRN Reason: Moderate Constipation Sodium Chloride (Ns Flush) 2 ml IV.FLUSH PRN PRN PRN Reason: FLUSH AFTER USING IV ACCESS Tamsulosin HCl (Flomax) 0.4 mg PO [facility] Last Admin: 03/12/18 21:05 Dose: 0.4 mg Tramadol HCl (Ultram) 50 mg PO Q4H PRN PRN Reason: PAIN SCALE 3 TO 5 Last Admin: 03/13/18 07:31 Dose: 50 mg Tramadol HCl (Ultram) 100 mg PO Q4H PRN PRN Reason: PAIN SCALE 6 TO 10 Allergies Allergy/AdvReac Type Severity Reaction Status Date / Time hydrocodone Allergy Intermediate RASH Verified 03/12/18 07:49 quinine Allergy Intermediate RASH Verified 03/12/18 07:49 Home Medications Medication Instructions Recorded Confirmed Type ascorbic acid (vitamin C) [Vitamin 500 mg PO BID 03/12/18 03/12/18 History C] enalapril maleate 5 mg PO BID 03/12/18 03/12/18 History fenofibrate 160 mg PO DAILY 03/12/18 03/12/18 History furosemide 20 mg PO BID 03/12/18 03/12/18 History insulin glargine [Lantus Solostar 18 unit SUBCUT DAILY 03/12/18 03/12/18 History U-100 Insulin] lovastatin 20 mg PO BID 03/12/18 03/12/18 History omeprazole 20 mg PO DAILY 03/12/18 03/12/18 History tamsulosin 0.4 mg PO DAILY 03/12/18 03/12/18 History Exam Vital signs: Vital Signs 03/12/18 13:02 03/12/18 16:00 03/12/18 20:00 Temperature 97.6 F 97.8 F Pulse Rate 96 H 66 71 Respiratory Rate 17 18 18 Blood Pressure 117/60 128/59 L 118/57 L Pulse Oximetry 100 98 94 L 03/13/18 00:00 03/13/18 04:00 03/13/18 08:00 Temperature 97.3 F L 97.6 F 98.0 F Pulse Rate 63 68 77 Respiratory Rate 17 17 19 Blood Pressure 121/57 L 132/60 144/67 H Pulse Oximetry 94 L 94 L 93 L Intake & Output 03/12/18 03/13/18 03/13/18 18:59 06:59 18:59 Intake Total 1120 / 1120 Output Total 350 / 350 Balance -350 / -350 1120 / 1120 Weight 73.936 kg 73.1 kg Intake: IV 400 / 400 Calcium Chloride Inj 2 GM In 200 / 200 D5W Inj 100 ML @ 120 mls/hr IV. SIG ONCE ONE Rx#:[id number] Magnesium Sulfate Inj 2 GM In 100 / 100 NS Inj 96 ML @ 50 mls/hr IV.SIG ONCE ONE Rx#:[id number] KCl 20 mEq Premix Inj 20 meq In 100 / 100 100 ml @ 50 mls/hr IV.SIG ONCE ONE Rx#:[id number] Oral 720 / 720 Output: Urine 350 / 350 Other: # Voids 2 Date of Last Bowel Movement 03/11/18 03/11/18 03/13/18 # Bowel Movements 2 Narrative: The patient is alert, awake. Comfortable, in no acute distress. Speech is fluent. Cranial nerve examination: pupils to be equal, round and reactive to light. Extra-ocular movements are intact. Facial motor and sensory function are normal and symmetrical. Gross hearing appears decreased bilat Sternocleidomastoid and trapezius muscles are symmetrical. Other cranial nerves are intact. Neck is soft and supple with a good range of motion without pain. Muscle strength is normal in all muscle groups of both upper and lower extremities. Sensory examination is intact to light touch and pin prick in both the upper and lower extremities. Deep tendon reflexes are symmetrical in both upper and lower extremities. There is a bilateral plantar flexion response. Cerebellar examination is unremarkable, without deficits. Lungs are clear Heart regular rhythm is regular rate Skin warm and dry Results - Laboratory Findings CBC and BMP: 03/13/18 04:34 03/13/18 04:34 Abnormal lab findings: Abnormal Labs 03/12/18 03/12/18 03/12/18 19:28 19:28 19:28 RBC 3.44 L Hgb 10.9 L Hct 31.4 L MCH Neut % (Auto) 73.2 H Mclean % (Auto) 8.5 H Eos % (Auto) Lymph # (Auto) PT 14.0 H Potassium 2.9 L* Chloride BUN 28 H Creatinine 1.35 H Estimated GFR 50 L POC Glucose Calcium 6.9 L* Prot Corrected Calcium 7.3 L* Magnesium 0.7 L 03/12/18 03/13/18 03/13/18 21:14 04:34 04:34 RBC 3.02 L Hgb 10.5 L Hct 30.0 L MCH 34.8 H Neut % (Auto) 70.9 H Mclean % (Auto) 9.7 H Eos % (Auto) 5.4 H Lymph # (Auto) 0.8 L PT Potassium Chloride 109 H BUN 27 H Creatinine Estimated GFR 64 L POC Glucose 125 H Calcium Prot Corrected Calcium Magnesium 1.4 L D Assessment and Plan - Plan 87-year-old male with a compression fracture deformity of the L2 vertebral body with invagination of the superior endplate. I have reviewed the clinical and radiological findings Lumbar Spine CT 03/12/18 08:14 CONCLUSION: 1. Moderate compression fracture deformity of the L2 vertebral body with invagination of the superior endplate. This appears acute to subacute with mild retropulsion of the posterior superior aspect measuring up to 3 mm with mass effect on the anterior thecal sac. 2. Chronic appearing compression fracture deformity of the L5 vertebral body with retropulsion which is new from the 2015 exam. 3. Stable compression fracture deformity of the T12 vertebral body. 4. Degenerative disc changes with annular disc bulges. There is mild to moderate central canal stenosis at L2-3. 5. Remote postsurgical changes status post left laminectomy at the L3-4 and L4- 5 levels. Pelvis X-Ray 03/12/18 08:14 CONCLUSION: No acute fracture or malalignment. Neuro: neuro checks in a serial fashion. Moderate compression fracture deformity of the L2 vertebral body with invagination of the superior endplate, acute to subacute with mild retropulsion of the posterior superior aspect measuring up to 3 mm with mass effect on the anterior thecal sac. Patient will be hospitalized for further evaluation and treatment. He will be started on pain management TLSO back brace. I recommend MRI lumbar spine. I discussed with him the alternatives of treatment, including the possibility of a kyphoplasty as a last resort. Sachin discussed the [id number] details of the surgical procedure, its indications, alternatives, risks, and potential complications. Risks and potential complications include, but are not limited to, infection, blood loss, CSF leak, partial or complete loss of sight in one or both eyes, paresis, paralysis, permanent pain or difficulty swallowing, loss of bowel or bladder function, complications from anesthesia, blood clot, stroke, myocardial infarction, or even . The possibility of nonoperative treatment has been offered. Pulmonary: aggressive pulmonary toilette, nasotracheal suction, and breathing treatments with nebulizers. Physical therapy evaluation. Renal: Continue to monitor closely urine output, BUN and creatinine Endocrine: Continue to Monitor serial Acu checks and SSI as needed in detail ID continue to monitor for signs of infection Continue Protonix for stress ulcer prophylaxis Continue Holland hose and SCD's for DVT prophylaxis Caprini VTE Risk Assessment Caprini VTE Risk Assessment: Moderate/High Risk (score >= 2) Caprini Risk Assessment Model: Point Value = 1 Point Value = 2 Point Value = 3 Point Value = 5 Age 41-60 Minor surgery BMI > 25 kg/m2 Swollen legs Varicose veins or History of unexplained or recurrent spontaneous Oral contraceptives or hormone replacement Sepsis (< 1 month) Serious lung disease, including pneumonia (< 1 month) Abnormal pulmonary function Acute myocardial infarction Congestive heart failure (< 1 month) History of inflammatory bowel disease Medical patient at bed rest Age 61-74 Arthroscopic surgery Major open surgery (> 45 min) Laparoscopic surgery (> 45 min) Malignancy Confined to bed (> 72 hours) Immobilizing plaster cast Central venous access Age >= 75 History of VTE Family history of VTE Factor V Leiden Prothrombin [id number] Lupus anticoagulant Anticardiolipin antibodies Elevated serum homocysteine Heparin-induced thrombocytopenia Other congenital or acquired thrombophilia Stroke (< 1 month) Elective arthroplasty Hip, pelvis, or leg fracture Acute spinal cord injury (< 1 month) Prophylaxis Regimen: Total Risk Factor Score Risk Level Prophylaxis Regimen 0-1 Low Early ambulation 2 Moderate Order ONE of the following: *Sequential Compression Device (SCD) *Heparin 5000 units SQ BID 3-4 Higher Order ONE of the following medications: *Heparin 5000 units SQ TID *Enoxaparin/Lovenox 40 mg SQ daily (WT < 150 kg, CrCl > 30 mL/min) *Enoxaparin/Lovenox 30 mg SQ daily (WT < 150 kg, CrCl > 10-29 mL/min) *Enoxaparin/Lovenox 30 mg SQ BID (WT < 150 kg, CrCl > 30 mL/min) AND/OR *Sequential Compression Device (SCD) 5 or more Highest Order ONE of the following medications: *Heparin 5000 units SQ TID (Preferred with Epidurals) *Enoxaparin/Lovenox 40 mg SQ daily (WT < 150 kg, CrCl > 30 mL/min) *Enoxaparin/Lovenox 30 mg SQ daily (WT < 150 kg, CrCl > 10-29 mL/min) *Enoxaparin/Lovenox 30 mg SQ BID (WT < 150 kg, CrCl > 30 mL/min) AND *Sequential Compression Device (SCD) Further recommendations will be provided depending on the patient's clinical evaluation and follow up studies.
--- NOTE | 2018-03-13 11:02 | P.PN ---
Subjective Interval history: Follow-up back pain. Refused kyphoplasty today because he wants to eat. Physical Exam Vital signs: Vital Signs 03/12/18 13:02 03/12/18 16:00 03/12/18 20:00 Temperature 97.6 F 97.8 F Pulse Rate 96 H 66 71 Respiratory Rate 17 18 18 Blood Pressure 117/60 128/59 L 118/57 L Pulse Oximetry 100 98 94 L 03/13/18 00:00 03/13/18 04:00 03/13/18 08:00 Temperature 97.3 F L 97.6 F 98.0 F Pulse Rate 63 68 77 Respiratory Rate 17 17 19 Blood Pressure 121/57 L 132/60 144/67 H Pulse Oximetry 94 L 94 L 93 L 03/13/18 10:45 Temperature 97.8 F Pulse Rate 73 Respiratory Rate Blood Pressure 138/69 Pulse Oximetry 93 L Intake & Output 03/12/18 03/13/18 03/13/18 18:59 06:59 18:59 Intake Total 1120 / 1120 Output Total 350 / 350 Balance -350 / -350 1120 / 1120 Weight 73.936 kg 73.1 kg Intake: IV 400 / 400 Calcium Chloride Inj 2 GM In 200 / 200 D5W Inj 100 ML @ 120 mls/hr IV. SIG ONCE ONE Rx#:[id number] Magnesium Sulfate Inj 2 GM In 100 / 100 NS Inj 96 ML @ 50 mls/hr IV.SIG ONCE ONE Rx#:[id number] KCl 20 mEq Premix Inj 20 meq In 100 / 100 100 ml @ 50 mls/hr IV.SIG ONCE ONE Rx#:[id number] Oral 720 / 720 Output: Urine 350 / 350 Other: # Voids 2 Date of Last Bowel Movement 03/11/18 03/11/18 03/13/18 # Bowel Movements 2 Narrative: GENERAL: Well-developed and well-nourished SKIN: Warm and dry. CARDIOVASCULAR: Regular rate and rhythm. RESPIRATORY: No accessory muscle use. Clear to auscultation. Breath sounds equal bilaterally. GASTROINTESTINAL: Abdomen soft, non-tender, nondistended. MUSCULOSKELETAL: Extremities without clubbing, cyanosis, or edema. No obvious deformities. TLSO brace NEUROLOGICAL: Awake and alert. No obvious cranial nerve deficits. Motor grossly within normal limits. Five out of 5 muscle strength in the arms and legs. Normal speech. Results - Labs CBC & Chem 7: 10/22/18 04:34 03/13/18 04:34 Laboratory Results - last 24 hr 03/12/18 03/12/18 03/12/18 13:00 19:28 19:28 WBC 8.9 RBC 3.44 L Hgb 10.9 L Hct 31.4 L MCV 91.2 MCH 31.8 MCHC 34.8 RDW 13.1 Plt Count 234 MPV 8.7 Neut % (Auto) 73.2 H Lymph % (Auto) 13.5 [place] % (Auto) 8.5 H Eos % (Auto) 3.8 Baso % (Auto) 1.0 Neut # (Auto) 6.5 Lymph # (Auto) 1.2 [place] # (Auto) 0.8 Eos # (Auto) 0.3 Baso # (Auto) 0.1 WBC Differential . Differential Comment Auto diff final PT 14.0 H INR 1.4 APTT 25.2 Sodium Potassium Chloride Carbon Dioxide Anion Gap BUN Creatinine Estimated GFR POC Glucose 105 Random Glucose Calcium Prot Corrected Calcium Magnesium Total Creatine Kinase Total Protein 03/12/18 03/12/18 03/13/18 19:28 21:14 04:34 WBC 6.5 RBC 3.02 L Hgb 10.5 L Hct 30.0 L MCV 99.1 D MCH 34.8 H MCHC 35.1 RDW 13.4 Plt Count 218 MPV 9.5 Neut % (Auto) 70.9 H Lymph % (Auto) 13.0 [place] % (Auto) 9.7 H Eos % (Auto) 5.4 H Baso % (Auto) 1.0 Neut # (Auto) 4.6 Lymph # (Auto) 0.8 L [place] # (Auto) 0.6 Eos # (Auto) 0.3 Baso # (Auto) 0.1 WBC Differential . Differential Comment Auto diff final PT INR APTT Sodium 141 Potassium 2.9 L* Chloride 104 Carbon Dioxide 27.8 Anion Gap 9 BUN 28 H Creatinine 1.35 H Estimated GFR 50 L POC Glucose 125 H Random Glucose 101 Calcium 6.9 L* Prot Corrected Calcium 7.3 L* Magnesium 0.7 L Total Creatine Kinase Total Protein 6.4 03/13/18 03/13/18 04:34 07:29 WBC RBC Hgb Hct MCV MCH MCHC RDW Plt Count MPV Neut % (Auto) Lymph % (Auto) [place] % (Auto) Eos % (Auto) Baso % (Auto) Neut # (Auto) Lymph # (Auto) [place] # (Auto) Eos # (Auto) Baso # (Auto) WBC Differential Differential Comment PT INR APTT Sodium 142 Potassium 4.3 D Chloride 109 H Carbon Dioxide 25.9 Anion Gap 7 BUN 27 H Creatinine 1.09 Estimated GFR 64 L POC Glucose 94 Random Glucose 86 Calcium 8.8 D Prot Corrected Calcium Magnesium 1.4 L D Total Creatine Kinase 227 Total Protein - Imaging ITS Impressions Lumbar Spine CT 03/12/18 08:14 CONCLUSION: 1. Moderate compression fracture deformity of the L2 vertebral body with invagination of the superior endplate. This appears acute to subacute with mild retropulsion of the posterior superior aspect measuring up to 3 mm with mass effect on the anterior thecal sac. 2. Chronic appearing compression fracture deformity of the L5 vertebral body with retropulsion which is new from the 2015 exam. 3. Stable compression fracture deformity of the T12 vertebral body. 4. Degenerative disc changes with annular disc bulges. There is mild to moderate central canal stenosis at L2-3. 5. Remote postsurgical changes status post left laminectomy at the L3-4 and L4- 5 levels. Pelvis X-Ray 03/12/18 08:14 CONCLUSION: No acute fracture or malalignment. Lumbar Spine MRI 03/13/18 00:00 CONCLUSION: 1. There is bone marrow edema consistent with an acute to subacute compression fracture injury involving L2 and L3. There is a moderate compression fracture of L2. There is a mild compression fracture injury along the superior endplate of L3. 2. Old wedge compression injuries at T12 and L5 without bone marrow edema. 3. Primary degenerative changes with disc degeneration and disc space narrowing at multiple levels. 4. 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 5. Disc bulging at multiple levels as described above. 6. Bilateral facet arthritis at multiple levels. Assessment and Plan - Plan This is a 87-year-old male with a history of hypertension, hyperlipidemia, diabetes mellitus, bilateral lower extremity edema and BPH. He presents to the emergency department complaining of acute back pain for the past 4-5 days. He has not been ambulatory. Acute to subacute compression fracture injury involving L2 and L3. There is a moderate compression fracture of L2. There is a mild compression fracture injury along the superior endplate of L3. For kyphoplasty in am. Continue pain management with tramadol and IV morphine counseled regarding narcotics. He will also be on muscle relaxer methocarbamol. Physical therapy recommending inpatient rehab however he does not meet criteria for inpatient status he has been referred to [facility] back brace. Dr. Metz has also been consulted Acute kidney injury with hypokalemia and hypomagnesemia. Improved kidney function with IV hydration still mildly hypomagnesemic. Replace magnesium and continue to hold Lasix DVT prophylaxis with SCD. Pharmacological prophylaxis per neurosurgery Discharge Planning: HHC vs rehab
--- NOTE | 2018-03-13 13:13 | MR ---
EXAM DATE: 03/13/2018 11:11 AM EDT AGE/SEX: 87 years / Male INDICATIONS: Pain. Low back pain, possible spinal surgery. CLINICAL DATA: This is the patient's initial encounter. Patient reports that signs and symptoms have been present for 1 week and indicates a pain score of 9/10. MEDICAL/SURGICAL HISTORY: Diabetes mellitus type II. Hypertension. Hypercholesterolemia. . TU RP. COMPARISON: [facility] [place] LUMBAR SPINE W/O CONTRAST, 03/12/2018. . TECHNIQUE: Multiplanar, multisequence MRI of the lumbar spine was performed without contrast. Patie nt was scanned in a sitting position; neutral, flexion, and extension scans were performed in the sa gittal plane. FINDINGS: Vertebra: There are moderate degenerative type changes noted throughout the entire lumbar spine. The re is disc degeneration disc space narrowing at multiple levels especially at L2-3 and L3-4. There is compression and bone marrow edema in the body of L2 consistent with a subacute compression fracture injury. There is bone marrow edema and a fracture line with mild compression to the superior endplate of L3. There is an old compression injury at L5 with no bone marrow edema. There is old compression at T12 with no bone marrow edema. Conus: Normal level and configuration. T12-L1: Diffuse broad-based bulging with some narrowing of the left neural foramina. The right neura l foramina appears patent. There is mild facet arthritis. There are some cysts associated with both k idneys. L1-L2: Diffuse broad-based bulging and left lateral bulging with narrowing of the neural foramina b ilaterally, left greater than right. There is mild retropulsion of bone material posteriorly at the t op of L2 from the compression fracture injury. Mild spinal canal stenosis. L2-L3: Moderate diffuse broad-based bulging with narrowing of the neural foramina bilaterally. Ther e is bilateral facet arthritis and hypertrophy ligamentum flavum causing some focal moderate spinal c anal stenosis. L3-L4: Mild left lateral bulging with some narrowing of the left neural foramina. The right neural foramina appears to be patent. There is bilateral facet arthritis. No significant spinal canal stenos is. L4-L5: Central and left lateral bulging with narrowing of the left neural foramina. The right neura l foramina appears patent. There is prominent bilateral facet arthritis. There is a focal intradural lipoma within the canal at this level.. Lipoma extends to about the mid body of L5. No significant sp inal canal stenosis. L5-S1: Mild diffuse broad-based bulging with mild narrowing of the neural foramina bilaterally. Mil d bilateral facet arthritis. No significant spinal canal stenosis. CONCLUSION: 1. There is bone marrow edema consistent with an acute to subacute compression fracture injury invol ving L2 and L3. There is a moderate compression fracture of L2. There is a mild compression fracture injury along the superior endplate of L3. 2. Old wedge compression injuries at T12 and L5 without bone marrow edema. 3. Primary degenerative changes with disc degeneration and disc space narrowing at multiple levels. 4. 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 5. Disc bulging at multiple levels as described above. 6. Bilateral facet arthritis at multiple levels. Electronically signed by: Perry Vann MD 03/13/2018 1:12 PM EDT
[2018-03-13] MEDS: Magnesium Oxide 400 MG Tablet PO SCH ×2 (13:21→22:49)
[2018-03-13] MEDS: Fenofibrate 145 MG Tablet PO SCH (22:49)
[2018-03-14] MEDS: Insulin NovoLOG Aspart Correctional Sugar Inj SQ SCH ×5 (05:50→23:04)
[2018-03-14] MEDS: Methocarbamol 500 MG Tablet PO SCH ×3 (06:32→22:08)
[2018-03-14] MEDS: Insulin Detemir Inj 1,000 UNIT/10 ML Vial SQ SCH (09:05)
[2018-03-14] MEDS: Magnesium Oxide 400 MG Tablet PO SCH ×2 (09:16→22:09)
[2018-03-14] MEDS: Ascorbic Acid 500 MG Tablet PO SCH ×2 (09:16→22:09)
[2018-03-14] MEDS: Pantoprazole Sodium 20 MG DR Tablet PO SCH (09:17)
[2018-03-14] MEDS: Senna/Docusate Sodium 8.6/50 MG Tablet PO SCH ×2 (09:17→22:10)
[2018-03-14 09:24] LABS: Calcium 8.1 mg/dL (8.5-10.1); Carbon Dioxide 24.1 meq/L (21.0-32.0); Magnesium 1.2 mg/dL (1.5-2.5); Potassium 3.8 meq/L (3.5-5.1)
--- NOTE | 2018-03-14 10:01 | P.PNNS ---
Subjective Interval history: This is a 87-year-old male with a history of arterial hypertension, hyperlipidemia, diabetes mellitus, bilateral lower extremity edema and BPH. He was brought to the emergency department complaining of back pain for the past 4- 5 days. He describes a muscle spasm affecting his left lower back that shoots down to the left lateral thigh up to the knee. It is a mild constant pain scale of 1 out of 10 but when he tries to move increases to 10 out of 10. His daily activity has significantly been limited because of pain. He has not been ambulatory. At baseline, he regularly exercises with 15-minute walking but has not done it for the past several days. He denies incontinence, numbness and recent trauma. CT of lumbar spine shows moderate compression fracture deformity of the L2 vertebral body with invagination of the superior endplate. I did his by Dr. Metz lumbar spine surgery years ago. Neurosurgery consultation was requested 03/14. I was consulted to perform a kyphoplasty, however I offered him a kyphoplasty. His daughter declined. She decided to proceed with surgery with the interventional radiologist. Physical Exam Vital signs: Vital Signs 03/13/18 10:45 03/13/18 16:00 03/13/18 20:00 Temperature 97.8 F 98.1 F 98.1 F Pulse Rate 73 78 83 Respiratory Rate 18 18 Blood Pressure 138/69 142/66 H 151/65 H Pulse Oximetry 93 L 94 L 93 L 03/14/18 00:00 03/14/18 01:00 03/14/18 04:00 Temperature 97.7 F 97.9 F Pulse Rate 75 75 Respiratory Rate 17 18 18 Blood Pressure 122/57 L 103/54 L Pulse Oximetry 93 L 93 L 03/14/18 08:00 Temperature 97.5 F L Pulse Rate 75 Respiratory Rate 16 Blood Pressure 128/58 L Pulse Oximetry 94 L Intake & Output 03/13/18 03/14/18 03/14/18 18:59 06:59 18:59 Intake Total 1460 / 1460 Balance 1460 / 1460 Weight 73.4 kg Intake: IV 1000 / 1000 Potassium Chlor 20 mEq/NACL 0. 1000 / 1000 45% Inj 1,000 ML @ 70 mls/hr IV .CONT .[id number] [facility] Rx#:[id number] Oral 460 / 460 Other: # Voids 5 3 Date of Last Bowel Movement 03/13/18 03/13/18 # Bowel Movements 1 Narrative: Mr Vela is alert, awake. Comfortable, in no acute distress. Speech is fluent. Cranial nerve examination: pupils to be equal, round and reactive to light. Extra-ocular movements are intact. Facial motor and sensory function are normal and symmetrical. Gross hearing appears decreased bilat Sternocleidomastoid and trapezius muscles are symmetrical. Other cranial nerves are intact. Neck is soft and supple with a good range of motion without pain. Muscle strength is normal in all muscle groups of both upper and lower extremities. Sensory examination is intact to light touch and pin prick in both the upper and lower extremities. Deep tendon reflexes are symmetrical in both upper and lower extremities. There is a bilateral plantar flexion response. Cerebellar examination is unremarkable, without deficits. Lungs are clear Heart regular rhythm is regular rate Skin warm and dry Assessment and Plan - Plan 87-year-old male with a compression fracture deformity of the L2 vertebral body with invagination of the superior endplate. I have reviewed the clinical and radiological findings Lumbar Spine CT 03/12/18 08:14 CONCLUSION: 1. Moderate compression fracture deformity of the L2 vertebral body with invagination of the superior endplate. This appears acute to subacute with mild retropulsion of the posterior superior aspect measuring up to 3 mm with mass effect on the anterior thecal sac. 2. Chronic appearing compression fracture deformity of the L5 vertebral body with retropulsion which is new from the 2015 exam. 3. Stable compression fracture deformity of the T12 vertebral body. 4. Degenerative disc changes with annular disc bulges. There is mild to moderate central canal stenosis at L2-3. 5. Remote postsurgical changes status post left laminectomy at the L3-4 and L4- 5 levels. Pelvis X-Ray 03/12/18 08:14 CONCLUSION: No acute fracture or malalignment. Neuro: neuro checks in a serial fashion. Moderate compression fracture deformity of the L2 vertebral body with invagination of the superior endplate, acute to subacute with mild retropulsion of the posterior superior aspect measuring up to 3 mm with mass effect on the anterior thecal sac. Patient will be hospitalized for further evaluation and treatment. He will be started on pain management TLSO back brace. I recommend MRI lumbar spine. I discussed with him the alternatives of treatment, including the possibility of a kyphoplasty as a last resort. Sachin discussed the [id number] details of the surgical procedure, its indications, alternatives, risks, and potential complications. Risks and potential complications include, but are not limited to, infection, blood loss, CSF leak, partial or complete loss of sight in one or both eyes, paresis, paralysis, permanent pain or difficulty swallowing, loss of bowel or bladder function, complications from anesthesia, blood clot, stroke, myocardial infarction, or even . The possibility of nonoperative treatment has been offered. Pulmonary: aggressive pulmonary toilette, nasotracheal suction, and breathing treatments with nebulizers. Physical therapy evaluation. Renal: Continue to monitor closely urine output, BUN and creatinine Endocrine: Continue to Monitor serial Acu checks and SSI as needed in detail ID continue to monitor for signs of infection Continue Protonix for stress ulcer prophylaxis Continue Holland hose and SCD's for DVT prophylaxis Caprini VTE Risk Assessment Caprini VTE Risk Assessment: Moderate/High Risk (score >= 2) Caprini Risk Assessment Model: Point Value = 1 Point Value = 2 Point Value = 3 Point Value = 5 Age 41-60 Minor surgery BMI > 25 kg/m2 Swollen legs Varicose veins or History of unexplained or recurrent spontaneous Oral contraceptives or hormone replacement Sepsis (< 1 month) Serious lung disease, including pneumonia (< 1 month) Abnormal pulmonary function Acute myocardial infarction Congestive heart failure (< 1 month) History of inflammatory bowel disease Medical patient at bed rest Age 61-74 Arthroscopic surgery Major open surgery (> 45 min) Laparoscopic surgery (> 45 min) Malignancy Confined to bed (> 72 hours) Immobilizing plaster cast Central venous access Age >= 75 History of VTE Family history of VTE Factor V Leiden Prothrombin [id number] Lupus anticoagulant Anticardiolipin antibodies Elevated serum homocysteine Heparin-induced thrombocytopenia Other congenital or acquired thrombophilia Stroke (< 1 month) Elective arthroplasty Hip, pelvis, or leg fracture Acute spinal cord injury (< 1 month) Prophylaxis Regimen: Total Risk Factor Score Risk Level Prophylaxis Regimen 0-1 Low Early ambulation 2 Moderate Order ONE of the following: *Sequential Compression Device (SCD) *Heparin 5000 units SQ BID 3-4 Higher Order ONE of the following medications: *Heparin 5000 units SQ TID *Enoxaparin/Lovenox 40 mg SQ daily (WT < 150 kg, CrCl > 30 mL/min) *Enoxaparin/Lovenox 30 mg SQ daily (WT < 150 kg, CrCl > 10-29 mL/min) *Enoxaparin/Lovenox 30 mg SQ BID (WT < 150 kg, CrCl > 30 mL/min) AND/OR *Sequential Compression Device (SCD) 5 or more Highest Order ONE of the following medications: *Heparin 5000 units SQ TID (Preferred with Epidurals) *Enoxaparin/Lovenox 40 mg SQ daily (WT < 150 kg, CrCl > 30 mL/min) *Enoxaparin/Lovenox 30 mg SQ daily (WT < 150 kg, CrCl > 10-29 mL/min) *Enoxaparin/Lovenox 30 mg SQ BID (WT < 150 kg, CrCl > 30 mL/min) AND *Sequential Compression Device (SCD) Further recommendations will be provided depending on the patient's clinical evaluation and follow up studies. Code Status: 87-year-old male with a compression fracture deformity of the L2 vertebral body with invagination of the superior endplate. Moderate compression fracture deformity of the L2 vertebral body with invagination of the superior endplate. His daughter declined a kyphoplasty, reporting that she wants an interventional radiologist to do the procedure. He underwent the procedure by interventional radiology [facility] back brace. I recommend MRI lumbar spine. I discussed with him the alternatives of treatment, including the possibility of a kyphoplasty as a last resort. Sachin discussed the [id number] details of the surgical procedure, its indications, alternatives, risks, and potential complications. Risks and potential complications include, but are not limited to, infection, blood loss, CSF leak, partial or complete loss of sight in one or both eyes, paresis, paralysis, permanent pain or difficulty swallowing, loss of bowel or bladder function, complications from anesthesia, blood clot, stroke, myocardial infarction, or even . The possibility of nonoperative treatment has been offered. Pulmonary: aggressive pulmonary toilette, nasotracheal suction, and breathing treatments with nebulizers. Physical therapy evaluation. Renal: Continue to monitor closely urine output, BUN and creatinine Endocrine: Continue to Monitor serial Acu checks and SSI as needed in detail ID continue to monitor for signs of infection Continue Protonix for stress ulcer prophylaxis Continue Holland hose and SCD's for DVT prophylaxis Caprini VTE Risk Assessment Caprini VTE Risk Assessment: Moderate/High Risk (score >= 2) Caprini Risk Assessment Model: Point Value = 1 Point Value = 2 Point Value = 3 Point Value = 5 Age 41-60 Minor surgery BMI > 25 kg/m2 Swollen legs Varicose veins or History of unexplained or recurrent spontaneous Oral contraceptives or hormone replacement Sepsis (< 1 month) Serious lung disease, including pneumonia (< 1 month) Abnormal pulmonary function Acute myocardial infarction Congestive heart failure (< 1 month) History of inflammatory bowel disease Medical patient at bed rest Age 61-74 Arthroscopic surgery Major open surgery (> 45 min) Laparoscopic surgery (> 45 min) Malignancy Confined to bed (> 72 hours) Immobilizing plaster cast Central venous access Age >= 75 History of VTE Family history of VTE Factor V Leiden Prothrombin [id number] Lupus anticoagulant Anticardiolipin antibodies Elevated serum homocysteine Heparin-induced thrombocytopenia Other congenital or acquired thrombophilia Stroke (< 1 month) Elective arthroplasty Hip, pelvis, or leg fracture Acute spinal cord injury (< 1 month) Prophylaxis Regimen: Total Risk Factor Score Risk Level Prophylaxis Regimen 0-1 Low Early ambulation 2 Moderate Order ONE of the following: *Sequential Compression Device (SCD) *Heparin 5000 units SQ BID 3-4 Higher Order ONE of the following medications: *Heparin 5000 units SQ TID *Enoxaparin/Lovenox 40 mg SQ daily (WT < 150 kg, CrCl > 30 mL/min) *Enoxaparin/Lovenox 30 mg SQ daily (WT < 150 kg, CrCl > 10-29 mL/min) *Enoxaparin/Lovenox 30 mg SQ BID (WT < 150 kg, CrCl > 30 mL/min) AND/OR *Sequential Compression Device (SCD) 5 or more Highest Order ONE of the following medications: *Heparin 5000 units SQ TID (Preferred with Epidurals) *Enoxaparin/Lovenox 40 mg SQ daily (WT < 150 kg, CrCl > 30 mL/min) *Enoxaparin/Lovenox 30 mg SQ daily (WT < 150 kg, CrCl > 10-29 mL/min) *Enoxaparin/Lovenox 30 mg SQ BID (WT < 150 kg, CrCl > 30 mL/min) AND *Sequential Compression Device (SCD) I have nothing else to offer. I will bryan his postoperative care to the interventional surgeon who performed the procedure. Will sign off. I will not follow up in my office
--- NOTE | 2018-03-14 11:03 | P.PN ---
Subjective Interval history: Patient with low back pain for Kyphoplasty later today. 03/14: Seen in his bedroom awaiting for procedure later today by doctor Dewayne Quan Jr. will have Kyphoplasty. no nausea, vomit or diarrhea. Physical Exam Vital signs: Vital Signs 03/13/18 16:00 03/13/18 20:00 03/14/18 00:00 Temperature 98.1 F 98.1 F 97.7 F Pulse Rate 78 83 75 Respiratory Rate 18 18 17 Blood Pressure 142/66 H 151/65 H 122/57 L Pulse Oximetry 94 L 93 L 93 L 03/14/18 01:00 03/14/18 04:00 03/14/18 08:00 Temperature 97.9 F 97.5 F L Pulse Rate 75 75 Respiratory Rate 18 18 16 Blood Pressure 103/54 L 128/58 L Pulse Oximetry 93 L 94 L Intake & Output 03/13/18 03/14/18 03/14/18 18:59 06:59 18:59 Intake Total 1460 / 1460 Balance 1460 / 1460 Weight 73.4 kg Intake: IV 1000 / 1000 Potassium Chlor 20 mEq/NACL 0. 1000 / 1000 45% Inj 1,000 ML @ 70 mls/hr IV .CONT .[id number] [facility] Rx#:[id number] Oral 460 / 460 Other: # Voids 5 3 Date of Last Bowel Movement 03/13/18 03/13/18 # Bowel Movements 1 Narrative: GENERAL: Well-developed and well-nourished SKIN: Warm and dry. CARDIOVASCULAR: Regular rate and rhythm. RESPIRATORY: No accessory muscle use. Clear to auscultation. Breath sounds equal bilaterally. GASTROINTESTINAL: Abdomen soft, non-tender, nondistended. MUSCULOSKELETAL: Extremities without clubbing, cyanosis, or edema. No obvious deformities. TLSO brace NEUROLOGICAL: Awake and alert. No obvious cranial nerve deficits. Results - Labs CBC & Chem 7: 03/13/18 04:34 03/14/18 08:40 Laboratory Results - last 24 hr 03/13/18 03/13/18 03/13/18 10:47 15:24 23:11 Sodium Potassium Chloride Carbon Dioxide Anion Gap BUN Creatinine Estimated GFR POC Glucose 71 98 109 Random Glucose Calcium Magnesium 03/14/18 03/14/18 08:40 09:02 Sodium 140 Potassium 3.8 Chloride 106 Carbon Dioxide 24.1 Anion Gap 10 BUN 24 H Creatinine 1.02 Estimated GFR 69 L POC Glucose 94 Random Glucose 88 Calcium 8.1 L Magnesium 1.2 L - Imaging Impressions Lumbar Spine CT 03/12/18 08:14 CONCLUSION: 1. Moderate compression fracture deformity of the L2 vertebral body with invagination of the superior endplate. This appears acute to subacute with mild retropulsion of the posterior superior aspect measuring up to 3 mm with mass effect on the anterior thecal sac. 2. Chronic appearing compression fracture deformity of the L5 vertebral body with retropulsion which is new from the 2015 exam. 3. Stable compression fracture deformity of the T12 vertebral body. 4. Degenerative disc changes with annular disc bulges. There is mild to moderate central canal stenosis at L2-3. 5. Remote postsurgical changes status post left laminectomy at the L3-4 and L4- 5 levels. Pelvis X-Ray 03/12/18 08:14 CONCLUSION: No acute fracture or malalignment. Lumbar Spine MRI 03/13/18 00:00 CONCLUSION: 1. There is bone marrow edema consistent with an acute to subacute compression fracture injury involving L2 and L3. There is a moderate compression fracture of L2. There is a mild compression fracture injury along the superior endplate of L3. 2. Old wedge compression injuries at T12 and L5 without bone marrow edema. 3. Primary degenerative changes with disc degeneration and disc space narrowing at multiple levels. 4. 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 5. Disc bulging at multiple levels as described above. 6. Bilateral facet arthritis at multiple levels. - Procedures none Assessment and Plan - Plan This is a 87-year-old male with a history of hypertension, hyperlipidemia, diabetes mellitus, bilateral lower extremity edema and BPH. He presents to the emergency department complaining of acute back pain for the past 4-5 days. He has not been ambulatory. Acute to subacute compression fracture injury involving L2 and L3. There is a moderate compression fracture of L2. There is a mild compression fracture injury along the superior endplate of L3. For kyphoplasty in am. Continue pain management with tramadol and IV morphine counseled regarding narcotics. He will also be on muscle relaxer methocarbamol. Physical therapy recommending inpatient rehab, as per Neurosurgery to proceed with Kyphoplasty. Acute kidney injury Improved electrolyte derangement replaced and following. DVT prophylaxis with SCD. Pharmacological prophylaxis per neurosurgery Code Status: Full Code. Discussed Condition With: patient and nurse miss Gore Discharge Planning: once cleared by specialist.
[2018-03-14] MEDS ORDERED: Metoprolol Tartrate 25 MG Tablet PO ONE (11:39)
[2018-03-14] MEDS ORDERED: Chlorhexidine Gluconate 2% 1 Pack (2 Cloths) TOPICAL ONE (11:39)
[2018-03-14] MEDS ORDERED: Sodium Chlor 0.9% Inj 500 ML IV.SIG SCH (12:00)
[2018-03-14] MEDS ORDERED: Bupivacaine PF 0.75% Inj 30 ML Vial ONE (13:18)
[2018-03-14] MEDS ORDERED: ceFAZolin 2 GM Premix Inj 2 GM/50 ML PIGGYBACK IV.SIG ONE (13:18)
--- NOTE | 2018-03-14 14:43 | P.RAD ---
Post Procedure Progress Note - Pre Procedure Diagnosis (1) Vertebral compression fracture (2) Closed compression fracture of L3 lumbar vertebra (3) Closed L2 vertebral fracture - Post Procedure Diagnosis (1) Closed L2 vertebral fracture (2) Closed compression fracture of L3 lumbar vertebra - Procedure Information Procedure Date: 03/14/18 Supervising Radiologist: Dewayne Quan Jr, MD Proceduralist/Assist: Chano Robles Anesthesia: General - Plan of Activity Patient to Unit: PACU Patient Condition: Good See PACS Report for procedural detail/treatment. Spinal Procedure Kyphoplasty L2, L3 Total Bone Cement (CCs): 12 Findings: successful L2 and L3 kyphoplasty. Plan: Supine bedrest for 2 hours. F/U with IR in 2-3 weeks.
[2018-03-14] MEDS ORDERED: fentaNYL Citrate Inj 100 MCG/2 ML Ampul ONE (15:01)
[2018-03-14] MEDS ORDERED: Dextrose 50% in Water Syringe 50 ML ONE (15:34)
--- NOTE | 2018-03-14 16:27 | IR ---
EXAM DATE: 03/14/2018 12:00 AM EDT AGE/SEX: 87 years / Male INDICATIONS: Patient with severer low back pain ongoing for several weeks. Acute compression fractur es involving L2 and L3. Pain is lifestyle limiting. CLINICAL DATA: This is the patient's initial encounter. Patient reports that signs and symptoms have been present for 4 - 6 days and indicates a pain score of 9/10. MEDICAL/SURGICAL HISTORY: Diabetes. Hypertension. urinary retention, BPH . TURP. COMPARISON: [facility] – [place], MR LUMBAR SPINE W/O CONTRAST, 03/13/2018. . FLUORO TIME (min): 12.6 IMAGE SERIES: 5 ACCESS SITE: L3 DEVICE(S): 12 CC AvaMax bone cement . . PROCEDURE: 1. Fluoroscopically-guided kyphoplasty of L2 and L3. 2. General anesthesia provided by the anesthesiology department. The risks, benefits and alternatives to the procedure were explained and verbal and written consent w as obtained. The site was prepped in sterile fashion. Full sterile technique was used, including ca p, mask, sterile gloves and gown and a large sterile sheet. Hand hygiene and 2% chlorhexidine and/or betadine/alcohol prep was utilized per protocol for cutaneous antisepsis. The skin and subcutaneous tissues were infiltrated with local anesthetic solution. With fluoroscopic guidance via a unilateral left transpedicular approach the L2 and L3 vertebral bodi es were accessed with a 12-gauge needle.. Kyphoplasty was performed with cavity creation utilizing a curved balloon.. The prescribed cement volume was placed into the vertebral bodies divided between the two utilizing a curved needle. Post procedure images demonstrate cement confined to the vertebra l body. Conscious sedation was performed with the prescribed dosages and duration as above in the presence of an independent trained radiology nurse to assist in the monitoring of the patient. EKG and oximetry remained stable throughout the procedure. The patient tolerated the procedure well and there were n o complications. The patient was sent to post anesthesia recovery in stable condition. CONCLUSION: 1. Uncomplicated L2 and L3 kyphoplasty as above. Electronically signed by: Dewayne Quan MD 03/14/2018 4:25 PM EDT
[2018-03-14] MEDS ORDERED: Mag Sulf 1 gm/100 ml Premix 100 ML IV.SIG SCH (18:00)
[2018-03-14] MEDS ORDERED: Magnesium Sulfate Inj 2 GM in Sodium Chlor 0.9% Inj 96 ML IV.SIG ONE (18:00)
[2018-03-14] MEDS: Fenofibrate 145 MG Tablet PO SCH (22:08)
[2018-03-14] MEDS: Mag Sulf 1 gm/100 ml Premix 100 ML IV.SIG SCH ×2 (22:08→23:25)
[2018-03-15] MEDS: Methocarbamol 500 MG Tablet PO SCH ×3 (05:22→22:45)
[2018-03-15] MEDS: Senna/Docusate Sodium 8.6/50 MG Tablet PO SCH ×2 (08:51→20:49)
[2018-03-15] MEDS: Magnesium Oxide 400 MG Tablet PO SCH ×2 (08:51→20:50)
[2018-03-15] MEDS: Ascorbic Acid 500 MG Tablet PO SCH ×2 (08:51→20:49)
[2018-03-15] MEDS: Pantoprazole Sodium 20 MG DR Tablet PO SCH (08:51)
[2018-03-15] MEDS: Insulin NovoLOG Aspart Correctional Sugar Inj SQ SCH ×4 (08:57→20:50)
[2018-03-15] MEDS: Insulin Detemir Inj 1,000 UNIT/10 ML Vial SQ SCH (09:00)
--- NOTE | 2018-03-15 11:43 | P.PN ---
Subjective Interval history: Patient with low back pain for Kyphoplasty later today. 03/14: Seen in his bedroom awaiting for procedure later today by doctor Dewayne Quan Jr. will have Kyphoplasty. 03/15: with diagnosis of Vertebral compression fracture, Closed compression fracture of L3 Lumbar vertebra, closed L2 vertebral fracture, Status post Kyphoplasty of L2 and L3, by doctor Dewayne Quan Jr. recommended for discharge tomorrow. no nausea, vomit or diarrhea. eating in his bedroom. Physical Exam Vital signs: Vital Signs 03/14/18 12:00 03/14/18 14:55 03/14/18 15:00 Temperature 97.7 F 97.8 F Pulse Rate 75 82 68 Respiratory Rate 18 16 17 Blood Pressure 134/60 154/70 H 141/63 H Pulse Oximetry 94 L 98 99 03/14/18 15:15 03/14/18 15:30 03/14/18 15:45 Temperature Pulse Rate 68 65 62 Respiratory Rate 17 17 19 Blood Pressure 133/60 131/63 131/63 Pulse Oximetry 99 99 95 03/14/18 16:00 03/14/18 16:15 03/14/18 16:45 Temperature 97.8 F 97.2 F L Pulse Rate 67 68 63 Respiratory Rate 19 19 18 Blood Pressure 132/73 132/60 142/63 H Pulse Oximetry 95 95 98 03/14/18 20:30 03/15/18 00:12 03/15/18 08:00 Temperature 97.8 F 97.6 F 97.8 F Pulse Rate 73 71 Respiratory Rate 18 18 16 Blood Pressure 113/56 L 141/63 H 152/67 H Pulse Oximetry 98 96 Intake & Output 03/14/18 03/15/18 03/15/18 18:59 06:59 18:59 Intake Total 340 / 340 680 / 680 Balance 340 / 340 680 / 680 Weight 73.4 kg Intake: IV 50 / 50 200 / 200 Magnesium Sulfate 1 gm/D5W 100 200 / 200 ml Premix 100 ML @ 100 mls/hr IV.SIG Q1H [facility] Rx#:[id number] Ancef 2 GM Premix Inj 2 gm In 50 / 50 50 ml @ 0 mls/hr IV.SIG .STK- [facility] Rx#:[id number] Oral 290 / 290 480 / 480 Other: # Voids 1 3 Date of Last Bowel Movement 03/13/18 03/13/18 # Bowel Movements 0 Narrative: GENERAL: Well-developed and well-nourished SKIN: Warm and dry. CARDIOVASCULAR: Regular rate and rhythm. RESPIRATORY: No accessory muscle use. Clear to auscultation. Breath sounds equal bilaterally. GASTROINTESTINAL: Abdomen soft, non-tender, nondistended. MUSCULOSKELETAL: Extremities without clubbing, cyanosis, or edema. No obvious deformities. TLSO brace NEUROLOGICAL: Awake and alert. No obvious cranial nerve deficits. Results - Labs CBC & Chem 7: 03/13/18 04:34 03/14/18 08:40 Laboratory Results - last 24 hr 03/14/18 03/14/18 03/14/18 15:29 15:32 16:01 POC Glucose 59 L 59 L 100 03/14/18 03/14/18 03/15/18 17:26 22:33 08:55 POC Glucose 88 133 H 146 H - Imaging Impressions Vertebroplasty 03/14/18 00:00 CONCLUSION: 1. Uncomplicated L2 and L3 kyphoplasty as above. - Procedures Post Procedure Progress Note - Pre Procedure Diagnosis (1) Vertebral compression fracture (2) Closed compression fracture of L3 lumbar vertebra (3) Closed L2 vertebral fracture - Post Procedure Diagnosis (1) Closed L2 vertebral fracture (2) Closed compression fracture of L3 lumbar vertebra - Procedure Information Procedure Date: 03/14/18 Supervising Radiologist: Dewayne Quan Jr, MD Proceduralist/Assist: Chano Robles Anesthesia: General - Plan of Activity Patient to Unit: PACU Patient Condition: Good See PACS Report for procedural detail/treatment. Spinal Procedure Kyphoplasty L2, L3 Total Bone Cement (CCs): 12 Findings: successful L2 and L3 kyphoplasty. Plan: Supine bedrest for 2 hours. F/U with IR in 2-3 weeks. Documented By: Jr. Kadeem, Dewayne GREEN 03/14/18 1441 Signed By: <Electronically signed by Jr. Dewayne Quan MD> 03/14/18 1445 Assessment and Plan - Plan This is a 87-year-old male with a history of hypertension, hyperlipidemia, diabetes mellitus, bilateral lower extremity edema and BPH. He presents to the emergency department complaining of acute back pain for the past 4-5 days. He has not been ambulatory. Acute to subacute compression fracture injury involving L2 and L3. There is a moderate compression fracture of L2. There is a mild compression fracture injury along the superior endplate of L3. For kyphoplasty in am. Continue pain management with tramadol and IV morphine counseled regarding narcotics. He will also be on muscle relaxer methocarbamol. Physical therapy recommending inpatient rehab, as per Neurosurgery to proceed with Kyphoplasty, With diagnosis of Vertebral compression fracture, Closed compression fracture of L3 Lumbar vertebra, closed L2 vertebral fracture , Status post Kyphoplasty of L2 and L3, by doctor Dewayne Quan Jr. recommended for discharge tomorrow. Acute kidney injury Improved electrolyte derangement replaced and following. DVT prophylaxis with SCD. Pharmacological prophylaxis per neurosurgery Code Status: Full code. Discussed Condition With: patient and nurse, MDR Discharge Planning: Discharge in am tomorrow.
[2018-03-15] MEDS: Fenofibrate 145 MG Tablet PO SCH (20:49)
[2018-03-16] MEDS: Methocarbamol 500 MG Tablet PO SCH ×2 (06:34→14:22)
[2018-03-16] MEDS: Insulin NovoLOG Aspart Correctional Sugar Inj SQ SCH ×2 (08:46→12:02)
[2018-03-16] MEDS: Insulin Detemir Inj 1,000 UNIT/10 ML Vial SQ SCH (08:47)
[2018-03-16] MEDS: Senna/Docusate Sodium 8.6/50 MG Tablet PO SCH (08:47)
[2018-03-16] MEDS: Pantoprazole Sodium 20 MG DR Tablet PO SCH (08:47)
[2018-03-16] MEDS: Magnesium Oxide 400 MG Tablet PO SCH (08:47)
[2018-03-16] MEDS: Ascorbic Acid 500 MG Tablet PO SCH (08:47)
[2018-03-16 09:55] VITALS: O2SAT 96
[2018-03-16 12:45] VITALS: BP 117/58; PULSE 77; RESP 20; TEMP 97.6
--- NOTE | 2018-03-18 01:03 | P.DS ---
Date of admission: 03/13/18 17:04 Primary care physician: Ilda Delgado MD Attending physician on discharge: Kathryn Donis Anticipated date of discharge: 03/16/18 Brief History from admission: This is a 87-year-old male with a history of hypertension, hyperlipidemia, diabetes mellitus, bilateral lower extremity edema and BPH. He presents to the emergency department complaining of back pain for the past 4-5 days. He describes a muscle spasm affecting his left lower back that shoots down to the left lateral thigh up to the knee. It is a mild constant pain scale of 1 out of 10 but when he tries to move increases to 10 out of 10. His activity has significantly been curtailed because of pain. He has not been ambulatory. At baseline, he regularly exercises with 15-minute walking but has not done it for the past several days. Denies incontinence, numbness and recent trauma. Lumbar CT shows moderate compression fracture deformity of the L2 vertebral body with invagination of the superior endplate. Patient lives with his daughter and son-in-law and has been totally dependent on his needs since he developed back pain. His family is concerned about his safety when he is alone. He is requesting to be evaluated by Dr. Metz who operated on his lumbar spine years ago. All other systems reviewed negative ITS Impressions Lumbar Spine CT 03/12/18 08:14 CONCLUSION: 1. Moderate compression fracture deformity of the L2 vertebral body with invagination of the superior endplate. This appears acute to subacute with mild retropulsion of the posterior superior aspect measuring up to 3 mm with mass effect on the anterior thecal sac. 2. Chronic appearing compression fracture deformity of the L5 vertebral body with retropulsion which is new from the 2015 exam. 3. Stable compression fracture deformity of the T12 vertebral body. 4. Degenerative disc changes with annular disc bulges. There is mild to moderate central canal stenosis at L2-3. 5. Remote postsurgical changes status post left laminectomy at the L3-4 and L4- 5 levels. Pelvis X-Ray 03/12/18 08:14 CONCLUSION: No acute fracture or malalignment. DS: Medications - Discharge Medications Prescriptions: hydrocodone-acetaminophen [[place]] 1 tab PO Q6H PRN #20 tab PRN Reason: pain DS: Summary - Time Spent with Patient Total time spent providing and/or coordinating discharge services: - Quality: VTE Deep Vein Thrombosis/Pulmonary Embolism Present on Admission: No Results Procedures completed during hospitalization: Post Procedure Progress Note - Pre Procedure Diagnosis (1) Vertebral compression fracture (2) Closed compression fracture of L3 lumbar vertebra (3) Closed L2 vertebral fracture - Post Procedure Diagnosis (1) Closed L2 vertebral fracture (2) Closed compression fracture of L3 lumbar vertebra - Procedure Information Procedure Date: 03/14/18 Supervising Radiologist: Dewayne Quan Jr, MD Proceduralist/Assist: Chano Robles Anesthesia: General - Plan of Activity Patient to Unit: PACU Patient Condition: Good See PACS Report for procedural detail/treatment. Spinal Procedure Kyphoplasty L2, L3 Total Bone Cement (CCs): 12 Findings: successful L2 and L3 kyphoplasty. Plan: Supine bedrest for 2 hours. F/U with IR in 2-3 weeks. Documented By: Jr. Quan Thomas MD 03/14/18 1441 Signed By: <Electronically signed by Jr. Dewayne Quan MD> 03/14/18 1443 - Impressions ITS Impressions Lumbar Spine CT 03/12/18 08:14 CONCLUSION: 1. Moderate compression fracture deformity of the L2 vertebral body with invagination of the superior endplate. This appears acute to subacute with mild retropulsion of the posterior superior aspect measuring up to 3 mm with mass effect on the anterior thecal sac. 2. Chronic appearing compression fracture deformity of the L5 vertebral body with retropulsion which is new from the 2015 exam. 3. Stable compression fracture deformity of the T12 vertebral body. 4. Degenerative disc changes with annular disc bulges. There is mild to moderate central canal stenosis at L2-3. 5. Remote postsurgical changes status post left laminectomy at the L3-4 and L4- 5 levels. Pelvis X-Ray 03/12/18 08:14 CONCLUSION: No acute fracture or malalignment. Lumbar Spine MRI 03/13/18 00:00 CONCLUSION: 1. There is bone marrow edema consistent with an acute to subacute compression fracture injury involving L2 and L3. There is a moderate compression fracture of L2. There is a mild compression fracture injury along the superior endplate of L3. 2. Old wedge compression injuries at T12 and L5 without bone marrow edema. 3. Primary degenerative changes with disc degeneration and disc space narrowing at multiple levels. 4. 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 5. Disc bulging at multiple levels as described above. 6. Bilateral facet arthritis at multiple levels. Discharge Plan - Discharge Disposition Patient Disposition: 03 Discharge to SNF - Discharge Condition Condition: Stable - Discharge Order Discharge Orders: Discharge Order (Routine); Ordered 03/16/18 Ordered By: Kathryn Donis - Discharge Details Anticipated Discharge Date: 03/16/18 - Physicians Team Primary Care Provider: Ilda Delgado Attending Provider: Kathryn Donis Other Providers: Omkar Washington MD ; [employer]
== END 2018-03-16 15:30 ==
LOC: NEPE 07:15 → NEDA 07:15 → N06 15:55
PROVIDERS: ADMIT Hospitalist; ATTEND Hospitalist